=== PATIENT | female | born 1980 | race Caucasian/White ===

== ENCOUNTER 2019-01-29 16:40 | Observation (INO) | payer OTHER, MEDICAID ==
[~2019-01-29] VITALS: Ht 157.5 cm; Wt 92.8 kg
[2019-01-29] MEDS ORDERED: PREN-154 PO (17:06)
[2019-01-29 17:07] VITALS: BP 110/53
[2019-01-29] MEDS ORDERED: LIDOCAINE/PF 1% 2 ML VIAL IM ONE (20:15)
== END 2019-01-29 20:50 | disposition home or self-care (01) ==
LOC: 4S 16:40
PROVIDERS: ADMIT Obstetrics & Gynecology; ATTEND Obstetrics & Gynecology
DX: O46.92 Antepartum hemorrhage, unspecified, second trimester (principal); O09.523 Supervision of elderly multigravida, third trimester; Z3A.25 25 weeks gestation of pregnancy
CPT/HCPCS: 76805; 81002; 96372; G0378; J0696; J3490

== ENCOUNTER 2019-04-03 02:18 | Observation (INO) | payer MEDICAID, OTHER ==
[~2019-04-03 02:18] MED LIST: PREN-154 PO
[2019-04-03 03:07] LABS: APPEARANCE,URINE CLOUDY (CLEAR); BILIRUBIN,URINE NEGATIVE (NEGATIVE); GLUCOSE, URINE (UA) NEGATIVE (NEGATIVE); KETONES,URINE TRACE mg/dL (NEGATIVE); LEUKOCYTE ESTERASE ,URINE MODERATE (NEGATIVE); NITRATE,URINE NEGATIVE (NEGATIVE); OCCULT BLOOD,URINE NEGATIVE (NEGATIVE); PROTEIN,URINE NEGATIVE (NEGATIVE); UROBILINOGEN,URINE 0.2 mg/dL (<=1.0)
[2019-04-03 03:14] LABS: BACTERIA,URINE Rare /HPF (None Seen); RBC,URINE None Seen /HPF (0-2); SQUAMOUS EPITHELIAL CELL,UR Moderate /LPF (None Seen)
[2019-04-03 03:54] VITALS: BP 120/75
== END 2019-04-03 03:46 | disposition home or self-care (01) ==
LOC: 4S 02:18
PROVIDERS: ADMIT Obstetrics & Gynecology; ATTEND Obstetrics & Gynecology
DX: O21.2 Late vomiting of pregnancy (principal); J45.909 Unspecified asthma, uncomplicated; Z87.440 Personal history of urinary (tract) infections; Z3A.25 25 weeks gestation of pregnancy
CPT/HCPCS: 81001; 87086; G0378